=== PATIENT | female | born 1960 | race Caucasian/White ===

== ENCOUNTER 2019-04-09 09:46 | Emergency (ER) | payer OTHER ==
--- NOTE | 2019-04-09 10:22 | ED ---
HPI Chest Pain - HPI Summary HPI Summary: A 59 y/o F presents to ED c/o R-sided CP onset approx 0700. The CP is rated as an ache, and a sharper pain radiates to her LUE and back. The pain is still present but duller at bedside. Patient was seated in the car on the way to work. She states waking up angry but did not elaborate. 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 Associated sx: mild warmth, SOB. Denies abd pain, recent illness. No previous episodes of similar sx. She has not had a stress test or echo previously. Non-smoker. Denies DM. PMHx: HTN, she takes medication, but forgot to take it this AM. She is on Metoprolol 100 mg, Lisinopril 20 mg, and another medication she does not recall. She is usually evaluated at [facility]. Dr. López is her PCP. - History of Current Complaint Chief Complaint: EDChestPainROMI Time Seen by Provider: 04/09/19 10:17 Hx Obtained From: Patient, Family/Medical Imaging Director - daughter Onset/Duration: Started Hours Ago, Atraumatic, Still Present Timing: Constant Initial Severity: Moderate Current Severity: Moderate Pain Intensity: 6 Pain Scale Used: 0-10 Numeric Chest Pain Location: Right Anterior Chest Pain Radiates: Yes Chest Pain Radiates To:: Back, Arm - LUE Character: Dull/Aching Associated Signs and Symptoms: Positive: Shortness of Breath, Back Pain - from CP, Other: - pos: mild warmth/flushed; LUE pain from CP. Negative: Abdominal Pain - Allergy/Home Medications Allergies/Adverse Reactions: Allergies Allergy/AdvReac Type Severity Reaction Status Date / Time amoxicillin Allergy Rash Verified 04/09/19 09:54 Home Medications: Home Medications Levothyroxine TAB* [Synthroid TAB*] 150 mcg PO DAILY 04/09/19 [History Confirmed 04/09/19] Lisinopril TAB* [Prinivil TAB*] 20 mg PO DAILY 04/09/19 [History Confirmed 04/09] Metoprolol Tartrate TAB* [Lopressor TAB*] 100 mg PO BID 04/09/19 [History Confirmed 04/09/19] amLODIPine TAB* [Norvasc 5 mg TAB*] 10 mg PO DAILY 04/09/19 [History Confirmed 04/09/19] PMH/Surg Hx/FS Hx/Imm Hx Previously Healthy: No Endocrine/Hematology History: Reports: Hx Thyroid Disease - hypo Denies: Hx Diabetes Cardiovascular History: Reports: Hx Hypertension Infectious Disease History: No Infectious Disease History: Denies: Traveled Outside the [place] in Last 30 Days - Family History Known Family History: Positive: Cardiac Disease, Hypertension, Diabetes, Other - pos: [place] - Social History Occupation: Employed Full-time Lives: With Family Alcohol Use: None Hx Substance Use: No Substance Use Type: Reports: None Hx Tobacco Use: No Smoking Status (MU): Never Smoked Tobacco Review of Systems Positive: Other - pos: mild warmth/flushed Positive: Chest Pain Positive: Shortness Of Breath Negative: Abdominal Pain Musculoskeletal: Other - pos: back pain and LUE pain radiating from CP All Other Systems Reviewed And Are Negative: Yes Physical Exam - Summary Physical Exam Summary: Appearance: Well-appearing, Obese, lying in bed comfortably Skin: Warm, dry, no obvious rash Eyes: sclera anicteric, no conjunctival pallor ENT: mucous membranes moist, pharynx appears normal Neck: Supple, nontender Respiratory: Clear to auscultation, no signs of respiratory distress Cardiovascular: Normal S1, S2. No murmurs. Normal distal pulses in tibial and radial bilaterally. Abdomen: Soft, nontender, normal active bowel sounds present Musculoskeletal: Normal, Strength/ROM Intact Neurological: A&Ox3, awake and alert, mentation is normal, speech is fluent and appropriate Psychiatric: affect is normal, does not appear anxious or depressed Triage Information Reviewed: Yes Vital Signs On Initial Exam: Initial Vitals Temp Pulse Resp BP Pulse Ox 96.8 F 99 18 0/0 96 04/09/19 09:52 04/09/19 09:52 04/09/19 09:52 04/09/19 09:52 04/09/19 09:52 Vital Signs Reviewed: Yes Diagnostics - Vital Signs Vital Signs Temp Pulse Resp BP Pulse Ox 04/09/19 10:10 220/110 04/09/19 09:52 96.8 F 99 18 0/0 96 - Laboratory Result Diagrams: 04/09/19 10:48 04/09/19 04:25 Lab Statement: Any lab studies that have been ordered have been reviewed, and results considered in the medical decision making process. - Radiology CXR Radiology Interpretation Completed By: Radiologist Summary of Radiographic Findings: IMPRESSION: NO ACTIVE CARDIOPULMONARY DISEASE IS NOTED. ED provider has reviewed this report. - EKG 1000 Cardiac Rate: NL - 90 bpm EKG Rhythm: Sinus Rhythm Summary of EKG Findings: NSR at 90 BPM, P waves, QRS complex, and T waves are within normal limits, T waves and intervals are normal, no ischemic changes. This is a normal EKG. Re-Evaluation - Re-Evaluation 1 Re-Evaluation Time: 13:39 Change: Improved Comment: Discussing results with patient and plans for discharge. Patient's pain has resolved. Chest Pain Course/Dx - Course Course Of Treatment: Pt is a 59 y/o F c/o R-sided aching CP and SOB onset [address] to work. The pain radiates to her LUE and back. No previous episodes of similar sx, no prior stress test or echo. PMHx: HTN, she forgot to take her morning meds. Non-smoker. Dr. López is her PCP. CXR is unremarkable. EKG is NSR at 90 BPM, P waves, QRS complex, and T waves are within normal limits, T waves and intervals are normal, no ischemic changes. Lab work is without significant abnormality except BUN/C: 22.4. Repeat troponin is unchanged at 0.01. This patient will be discharged home to follow up with her PCP. - Diagnoses Provider Diagnoses: Chest pain Discharge - Sign-Out/Discharge Documenting (check all that apply): Patient Departure - D/C Patient Received Moderate/Deep Sedation with Procedure: No - Discharge Plan Condition: Good Disposition: HOME Patient Education Materials: Chest Pain (ED) Referrals: Rene JOHNSON,Devin Kamara [Primary Care Provider] - 1 Week Additional Instructions: While we did not find any worrisome test results today, I do recommend seeing your primary care doctor within the next week. You may need to have further testing, such as a stress test, to get to the bottom of this problem. - Billing Disposition and Condition Condition: GOOD Disposition: Home - Attestation Statements Document Initiated by Scribe: Yes Documenting Scribe: Camilo Coelho Provider For Whom Scribe is Documenting (Include Credential): Dr. Janusz Ruvalcaba MD Scribe Attestation: I, Camilo Coelho, scribed for Dr. Janusz Ruvalcaba MD on 04/10/19 at 1119. Scribe Documentation Reviewed: Yes Provider Attestation: The documentation as recorded by the fidel, Camilo Coelho accurately reflects the service I personally performed and the decisions made by me, Dr. Janusz Ruvalcaba MD Status of Scribe Document: Viewed
[2019-04-09] MEDS ORDERED: Metoprolol Tartrate TAB* 50 mg PO ONE (10:40)
[2019-04-09] MEDS ORDERED: Lisinopril TAB* 10 MG PO ONE (10:41)
[2019-04-09 11:14] LABS: ABS Basophils 0.1 10^3/ul (0-0.2); ABS Eosinophils 0.3 10^3/ul (0-0.6); ABS Lymphocytes 2.4 10^3/ul (1.0-4.8); ABS Monocytes 0.9 10^3/ul (0-0.8); ABS Neutrophils 5.3 10^3/ul (1.5-7.7); Eosinophil % 3.7 %; Hematocrit 41 % (35-47); Hemoglobin 13.5 g/dL (12.0-16.0); Lymphocyte % 26.5 %; Mean Corpuscular HGB Conc 33 g/dL (31-36); Mean Corpuscular Hemoglobin 28 pg (27-31); Mean Corpuscular Volume 85 fL (80-97); Mean Platelet Volume 9.8 fL (7.4-10.4); Nucleated Red Blood Cells % 0.1; Platelet Count 228 10^3/uL (150-450); Red Blood Count 4.85 10^6 /uL (3.70-4.87); Red Cell Distribution Width 15 % (10.5-15); White Blood Count 8.9 10^3/uL (3.5-10.8)
[2019-04-09 11:21] LABS: Troponin I 0.01 ng/mL (<0.04)
[2019-04-09 11:28] LABS: Albumin 4.5 g/dL (3.2-5.2); Albumin/Globulin Ratio 1.3 (1-3); BUN/Creatinine Ratio 22.4 (8-20); Calcium 10.7 mg/dL (8.6-10.3); EGFR African American 83.1 (>60); EGFR Non-African American 68.7 (>60); Globulin 3.4 g/dL (2-4); Total Bilirubin 0.4 mg/dL (0.2-1.0); Total Protein 7.9 g/dL (6.4-8.9)
[2019-04-09 13:36] VITALS: BP 182/86
== END 2019-04-09 13:48 | disposition home or self-care (01) ==
LOC: ED 09:46
DX: R07.9 Chest pain, unspecified (principal); E03.9 Hypothyroidism, unspecified; I10 Essential (primary) hypertension
CPT/HCPCS: 36415; 71045; 80053; 84484; 85025; 93005; 99283; A9270-GY